=== PATIENT | male | born 1935 | race Native Hawaiian/Other Pacific Islander ===

== ENCOUNTER 2020-01-25 14:42 | Outpatient (CLI) | payer OTHER | END 2020-01-25 20:35 | disposition home or self-care (01) | LOC: MRI 14:42 | DX: M54.2 Cervicalgia (principal); M54.12 Radiculopathy, cervical region; M48.02 Spinal stenosis, cervical region ==

== ENCOUNTER 2020-07-09 12:30 | Outpatient (CLI) | payer OTHER | END 2020-07-09 20:50 | disposition home or self-care (01) | LOC: RESP 12:30 | PROVIDERS: ATTEND Specialist | DX: Z01.810 Encounter for preprocedural cardiovascular examination (principal); I10 Essential (primary) hypertension ==

== ENCOUNTER 2020-08-28 09:06 | Outpatient (CLI) | payer OTHER ==
[~2020-08-28] VITALS: Ht 172.7 cm; Wt 77.6 kg
== END 2020-08-28 20:42 | disposition home or self-care (01) ==
LOC: NM 09:06
PROVIDERS: ATTEND Specialist
DX: Z01.810 Encounter for preprocedural cardiovascular examination (principal); I10 Essential (primary) hypertension
CPT/HCPCS: A9500; J2785